=== PATIENT | female | born 1990 | race Asian ===

== ENCOUNTER 2020-08-14 13:27 | Emergency (ER) | payer MEDICAID ==
[~2020-08-14] VITALS: Ht 165.1 cm; Wt 82.3 kg
[~2020-08-14 13:27] MED LIST: PROC-8 PO
[2020-08-14 13:47] VITALS: BP 135/88
[2020-08-14] MEDS ORDERED: LIDO20SO16 PO (16:58)
== END 2020-08-14 17:07 | disposition home or self-care (01) ==
LOC: ER 13:27
DX: J02.9 Acute pharyngitis, unspecified (principal); H92.09 Otalgia, unspecified ear; G43.909 Migraine, unspecified, not intractable, without status migrainosus; Z72.89 Other problems related to lifestyle; Z88.1 Allergy status to other antibiotic agents; Z88.8 Allergy status to other drugs, medicaments and biological substances; Z79.899 Other long term (current) drug therapy
CPT/HCPCS: 87081; 87880; 99283